=== PATIENT | female | born 1990 | race Caucasian/White ===

== ENCOUNTER 2017-12-03 12:14 | Emergency (ER) | payer OTHER | END 2017-12-03 13:02 | disposition home or self-care (01) | LOC: E/R 12:14 | DX: R05 Cough (principal); R09.81 Nasal congestion; J02.9 Acute pharyngitis, unspecified; R50.9 Fever, unspecified; R51 Headache; R19.7 Diarrhea, unspecified | CPT/HCPCS: 99284; Z7502 ==